=== PATIENT | male | born 1950 | race American Indian/Alaskan Native ===

== ENCOUNTER 2023-09-23 05:45 | Day surgery (SDC) | payer OTHER ==
[~2023-09-23] VITALS: Ht 162.6 cm; Wt 70.3 kg
[2023-09-23 06:36] VITALS: O2SAT 99
[2023-09-23] MEDS ORDERED: DEXAMETHASONE SOD PHOSPHATE 4 MG/ML VIAL ONE (07:45)
[2023-09-23] MEDS ORDERED: ACETAMINOPHEN I.V. 1000 MG 100 ML IV ONE (08:14)
[2023-09-23] MEDS ORDERED: fentaNYL CITRATE/PF 100 MCG/2 ML AMP ONE (08:14)
[2023-09-23] MEDS ORDERED: ONDANSETRON HCL 4 MG/2 ML VIAL IVP PRN (08:30)
[2023-09-23] MEDS ORDERED: HYDROmorphone 1 MG/ML INJ. CARTRIDGE IVP PRN ×2 (08:30)
[2023-09-23] MEDS ORDERED: hydrALAZINE HCL 20 MG/ML VIAL IV PRN (08:30)
[2023-09-23] MEDS ORDERED: NALOXONE HCL 0.4 MG/ML AMP (NARCAN) IVP PRN (08:30)
[2023-09-23] MEDS ORDERED: KETOROLAC TROMETHAMINE 30 MG VIAL IM PRN (08:30)
[2023-09-23 11:20] VITALS: BP_SYST 134; PULSE 53; RESP 20
== END 2023-09-23 11:15 | disposition home or self-care (01) ==
LOC: SDS 05:45
PROVIDERS: ATTEND Urology
DX: N21.0 Calculus in bladder (principal); I10 Essential (primary) hypertension; E78.5 Hyperlipidemia, unspecified; E11.9 Type 2 diabetes mellitus without complications; Z79.82 Long term (current) use of aspirin; Z79.899 Other long term (current) drug therapy
CPT/HCPCS: 87081; 52318; 82948; 88300; J0696; J1100; J3490; J2704; J3010; J7120; J0131; J2001